=== PATIENT | female | born 1965 | race Caucasian/White ===

== ENCOUNTER → 2021-10-19 14:26 | Outpatient (CLI) | payer OTHER, SELFPAY ==
[2021-10-19 14:56] LABS: COVID19 -Nasal RAPID Negative (Negative)
== END ==
PROVIDERS: PCP Family Medicine; Visit Provider Specialist
DX: Z01.812 Encounter for preprocedural laboratory examination (principal); Z20.822 Contact with and (suspected) exposure to COVID-19
CPT/HCPCS: 87635

== ENCOUNTER 2021-10-20 09:13 | Day surgery (SDC) | payer OTHER, SELFPAY ==
[2021-10-18 10:56] VITALS: BMI 27.8
--- NOTE | 2021-10-20 | PATH_ITS ---
[facility] Accession Number: [id number] . 01 Material submitted: . endometrium - ENDOMETRIAL BIOPSY . 02 Diagnosis: Endometrium, Biopsy: Focal features worrisome for atypical hyperplasia in a background of endometrial polyp. Negative for malignancy. MRV 10/24/2021 1245 Local . 02 Comment: As part of routine compliance quality performance analyst, Dr. Perea has reviewed this case and agrees with the interpretation above. . 02 Electronically signed: . Filiberto Laura MD, PhD, Pathologist NPI- [id number] . 01 Gross description: . ENDOMETRIAL BIOPSY: Received in formalin are minute fragments of mucoid and hemorrhagic material measuring 2.6 x 2.5 x 0.2 cm in aggregate. Submitted in toto in 1 cassette. /CPE 10/21/2021 0928 Local . 02 Pathologist provided ICD-10: N95.0 . 02 CPT . 850862 Specimen Comment: A courtesy copy of this report has been sent to [phone] Performed at: 01 [facility] [address] [facility], [place], [place] [id number] MD Hector Duggan MD Phone: [phone] Performed at: 02 [facility] [address] [place], [place] [id number] MD Mone Perea MD Phone: [phone]
[2021-10-20 10:13] VITALS: BP 140/80; PULSE 59; RESP 16; TEMP 36.2; O2SAT 100; BMI 28.0
[2021-10-20] MEDS: LACTATED RINGERS 1,000 ML 100 ML IV (10:39)
--- NOTE | 2021-10-20 10:45 | PM.PREOP ---
Pre-operative Note COVID-19 COVID-19 status: Negative Result date/Date tested (Pos, Neg/Pending): 10/19/21 Criteria for continued procedure: Expected advancement of disease process Interval Note History & Physical reviewed/Exam performed by Physician: Yes Changes to H&P: No
--- NOTE | 2021-10-20 11:27 | SUR.OPER ---
Lithotomy on padded OR bed, head on pillow, arms secured on padded arm boards at <90 degrees abduction. Legs secured in padded yellow fins stirrups.
[2021-10-20 11:48] VITALS: BP 117/66; PULSE 81; RESP 13; TEMP 36.8; O2SAT 95
[2021-10-20 11:53] VITALS: BP 118/77; PULSE 75; RESP 11; O2SAT 96
--- NOTE | 2021-10-20 12:01 | PM.OP.1 ---
Operative Date/Time/Diagnoses Date of procedure: 10/20/21 Time of procedure: 12:02 Pre-op diagnosis: Postmenopausal bleeding and thickened endometrium on ultrasound Post-op diagnosis: same Procedure & Clinicians Procedure: Hysteroscopy with resection of endometrial polyps and D&C Same procedure as scheduled: Yes Indications: Postmenopausal bleeding with thickened endometrium on ultrasound Surgeon: Liane Rivera Click Yes if Unassisted: Yes Anesthesia Type: General Operative Notes Findings: Multiple polyps, heart-shaped endometrial cavity, submucous fibroid. Closure Type: not applicable Specimen(s): other (Endometrial biopsy) Estimated Blood Loss (mL): 5 Blood products transfused: none Procedure in detail: The patient was brought to the operating room where she underwent general anesthesia. She was placed in low stirrups She was prepped and draped in usual sterile fashion with pulsatile stockings in place and functional, warming in place, no antibiotics indicated. A check system was reviewed with the staff in the room prior to beginning the case. Her bladder was drained with in and out catheter. A single-tooth tenaculum was placed on the anterior lip of the cervix and the uterus dilated to #8 Hegar dilator. The hysteroscope was placed into the uterus with a sorbitol solution running and under constant suction. The resecting loop set at 80 W of cutting was used to resect the small submucosal fibroid and polyps down to the level of the endometrium. A endometrial curettage was performed. The fibroid, polyps, and the endometrial curettage was sent to pathology. The patient went to recovery room in good condition counts of instruments and sponges were correct. Estimated blood loss less than 5 mL. The sorbitol solution I=O approximately 3000 mL. Complications: none Post-operative Condition: stable Disposition: same day surgery Plan for aftercare: Home when awake and stable
[2021-10-20 12:25] VITALS: BP 118/71; PULSE 70; RESP 16; TEMP 36.4; O2SAT 98
== END 2021-10-20 12:30 | disposition home or self-care (01) ==
PROVIDERS: PCP Family Medicine; Referring Provider Specialist; Visit Provider Specialist
PROC: 0UDB8ZZ Extraction of Endometrium, Via Natural or Artificial Opening Endoscopic (ICD-10-PCS; CPT 58558; principal; 2021-10-20 11:15)
DX: N95.0 Postmenopausal bleeding (principal); D25.0 Submucous leiomyoma of uterus; N84.0 Polyp of corpus uteri
CPT/HCPCS: 58558; J1100; J1885; J2250; J2704; J3010

== ENCOUNTER → 2021-12-20 15:46 | Outpatient (CLI) | payer OTHER, SELFPAY ==
[2021-12-20 16:41] LABS: COVID19 -Nasal RAPID Negative (Negative)
== END ==
PROVIDERS: PCP Family Medicine; Visit Provider Specialist
DX: Z01.812 Encounter for preprocedural laboratory examination (principal); Z20.822 Contact with and (suspected) exposure to COVID-19
CPT/HCPCS: 87635

== ENCOUNTER 2021-12-21 12:01 | Day surgery (SDC) | payer OTHER, SELFPAY ==
[2021-12-19 12:51] VITALS: BMI 28.1
[2021-12-21] VITALS (13 sets, daily range): BP systolic 110–141; BP diastolic 65–88; PULSE 62–88; RESP 12–18; TEMP 36.2–36.7; O2SAT 95–100; BMI 28.1
--- NOTE | 2021-12-21 | PATH_ITS ---
[facility] Accession Number: [id number] . 01 Material submitted: . uterus - UTERUS, CERVIX, BILATERAL FALLOPIAN TUBES, BILATERAL OVARIES . 01 Diagnosis: Uterus, Cervix, Bilateral Fallopian Tubes, Bilateral Ovaries, Total Laparoscopic Hysterectomy with Bilateral Salpingo-oophorectomy (Weight 191 grams, Fragmented Uterus Specimen): Cervix with no significant histomorphologic abnormality. Endocervix with no significant histomorphologic abnormality. Endometrium with minute foci of atypical glandular hyperplasia; no cytologic atypia or invasive tumor identified. Please see comment. Myometrium with an adenomyoma and with multiple intramural leiomyomas (up to 43 mm in greatest dimension) with patchy calcification; negative for atypia or malignancy. Right fallopian tube with multiple benign paratubal cysts (up to 6 mm in greatest dimension); negative for atypia or malignancy. Left fallopian tube with no significant histomorphologic abnormality. Right and left ovaries with no significant histomorphologic abnormality. [facility] 12/26/2021 1423 Local . 01 Comment: All grossly visible endometrium is submitted for histologic evaluation. . 01 Electronically signed: . Leni Ponce MD, Pathologist NPI- [id number] . 01 Gross description: . Received in formalin and labeled with the patient's name and uterus, cervix, bilateral fallopian tubes, bilateral ovaries and consists of 191 gram severely distorted, fragmented uterus (13.1 x 8.5 x 5.5 cm in aggregate) with detached cervix (2.7 x 2.7 cm). The serosa is malagon, smooth, and significantly distorted by multiple firm subserosal nodules. The ectocervix is pink-malagon, smooth and unremarkable. The ectocervical margin is inked black (orientation cannot be determined). The os is slit-like and patent, and measures 0.7 cm in greatest dimension. The endocervical canal (3.2 cm in length) has a malagon-pink, herringbone mucosa. The endometrial cavity is unable to be definitively identified, and the possible endometrium is malagon-brown, and the average thickness cannot be determined. Multiple pale malagon, whorled, well-circumscribed leiomyomata, measuring up to 4.3 cm in greatest dimension, are identified, both intramural and subserosal, without hemorrhage or necrosis, however, focal areas of hard tissue consistent with calcification are identified within two nodules. . The right fallopian tube measures 4.7 cm in length and up to 0.9 cm in greatest diameter. The serosa is violaceous with small cystic structures identified proximally, measuring up to 0.6 cm in greatest dimension. The left fallopian tube is avulsed proximally from the body of the uterus and measures 6.5 cm in length and 1.0 cm in greatest diameter with a violaceous unremarkable serosa. . The right malagon, cerebriform ovary measures 2.4 x 1.8 x 0.9 cm with a normal physiologic cut surface. The left malagon, cerebriform ovary measures 2.4 x 1.2 x 0.6 cm with a normal physiologic cut surface. . Education Spec sections are submitted as follows: . A1: Education Spec cervix. A2: Education Spec opposite cervix. A3-A5: Possible endometrium. A6-A7: Calcified nodules following decalcification. A8-A9: Education Spec nodules. A10: Left fallopian tube. A11: Right ovary. A12: Right fallopian tube. A13: Left ovary. ([id number]) /[facility] 12/26/20[address] [facility] . 01 Pathologist provided ICD-10: N95.0, N85.02, D25.9 . 01 CPT . 990958 Specimen Comment: A courtesy copy of this report has been sent to [phone] Performed at: 01 [facility] [address] [place] [address], [place], [place] [id number] MD Hector Duggan MD Phone: [phone]
[2021-12-21] MEDS: ACETAMINOPHEN 325 MG TABLET 975 MG PO (12:23)
--- NOTE | 2021-12-21 13:08 | PM.PREOP ---
Pre-operative Note COVID-19 COVID-19 status: Negative Result date/Date tested (Pos, Neg/Pending): 12/20/21 Criteria for continued procedure: Expected advancement of disease process Interval Note History & Physical reviewed/Exam performed by Physician: Yes Changes to H&P: No
[2021-12-21] MEDS: LACTATED RINGERS 1,000 ML 100 ML IV ×3 (13:18→18:18)
[2021-12-21] MEDS: CEFAZOLIN 2 GM/20 ML SYRINGE IV (14:16)
--- NOTE | 2021-12-21 14:42 | SUR.OPER ---
Lithotomy on padded OR bed. [place] Pad Positioner under torso. Head on pillow, arms padded and tucked at sides. Legs secured in padded yellow fins stirrups.
[2021-12-21] MEDS: BUPIVACAINE 0.5% W/ EPI (PF) 30 ML VIAL INJ (15:02)
[2021-12-21] MEDS: ROPIVACAINE 0.2% PF 2 MG/ML 10ML AMP 20 ML INJ (15:29)
--- NOTE | 2021-12-21 15:55 | P.OP_ITS ---
Operative Date/Time/Diagnoses Date of procedure: 12/21/21 Time of procedure: 15:55 Pre-op diagnosis: Atypical hyperplasia on hysteroscopy biopsy Post-op diagnosis: same Procedure & Clinicians Procedure: Laparoscopic total hysterectomy with bilateral salpingo oophorectomy Same procedure as scheduled: Yes Indications: Patient with atypical endometrial hyperplasia of a polyp on hysteroscopy D&C done for postmenopausal bleeding Surgeon: Liane Rivera Sales Promotion Director: Ruperto Osei Click Yes if Unassisted: No Anesthesia Type: General Operative Notes Findings: Enlarged fibroid uterus with normal appearing fallopian tubes and ovaries. Normal appearing liver edge. Normal bowel surface. Closure Type: primary Specimen(s): other (Uterus tubes and ovaries) Estimated Blood Loss (mL): 50 Blood products transfused: none Procedure in detail: Patient is brought to the operating room where she underwent general anesthesia and placed in low yellowfin stirrups. She was prepped and draped in the usual sterile fashion. A check list was reviewed with the staff in the room prior to beginning of the case. Patient had pulsatile stockings in place and functional. 2 g of Ancef were in prior to beginning of the case.. A Starks catheter was placed. A single-tooth tenaculum was placed on the anterior lip of the cervix and the cervix dilated to a #6 Hegar dilator. The VCare uterine manipulator was placed through the cervix into the uterus with the balloon inflated with 3 mL of air. The area of the umbilical incision and the 5 mm right and left lower quadrant incisions were injected with Marcaine. An incision was made with sc alpel. The verries needle was placed into the abdomen and confirmed in the appropriate place with withdrawal on a syringe and then free flow of fluid down through the needle. The abdomen was insufflated with CO2. The needle was removed and a 5 mm trocar placed without difficulty. There did not appear to be any damage is placement of the trocar. The right and left lower quadrant incisions were made with the scalpel and the trochars placed without damage to internal structures. The PK forceps were used to cauterize the infundibulopelvic ligaments. Sequential bites were taken along the broad ligament followed by the round ligaments on both sides. Sequential bites were taken down the broad ligaments. The uterine arteries were cauterized. An incision was made above the level bladder pushing the bladder away from the cervix. The hook Bovie tip cautery was used to cauterize the vaginal cuff along the VCare cuff. The uterus was freed. Next the procedure was switched to vaginal. Using a weighted speculum and a retractor the cervix was grasped with a single-tooth tenaculum. The uterus was hand morselized allowing the uterus tubes and ovaries to be removed vaginally. The vaginal cuff was closed from anterior to posterior with interrupted 0 Vicryl sutures. Adequate hemostasis was noted. The abdomen was reinsufflated and adequate hemostasis was noted. 20 cc of ropivacaine were placed over the incision. trochars were removed and the CO2 allowed escape from the abdomen. Skin was closed with 4-0 Monocryl suture at the 3 sites. The patient went to recovery room in good condition. Counts of instruments and sponges were correct. Dr. Osei was present throughout the case to assist with holding the camera, retracting, cauterizing and cutting the structures on the left side of the patient, as well as assisting with morselization of the uterus and repairing the vaginal cuff. Complications: none Post-operative Condition: stable Disposition: same day surgery Plan for aftercare: Home when awake and stable in able to urinate, pain controlled and ambulate
[2021-12-21] MEDS: OXYCODONE IR 5 MG TABLET PO (16:24)
[2021-12-21] MEDS: HYDROCODONE/ACET 5/325 TABLET 1 TAB PO (21:30)
[2021-12-21] MEDS: KETOROLAC 30 MG/ML VIAL IV (23:01)
[2021-12-22 02:00] VITALS: BP 128/75; PULSE 71; RESP 14; TEMP 36.5; O2SAT 96
[2021-12-22] MEDS: KETOROLAC 30 MG/ML VIAL IV ×2 (05:03→10:36)
[2021-12-22 05:56] VITALS: BP 124/68; PULSE 68; RESP 14; TEMP 36.6; O2SAT 97
[2021-12-22] MEDS: THYROID, PORK 30 MG TABLET 97.5 MG PO (06:10)
[2021-12-22 07:00] VITALS: O2SAT 96
--- NOTE | 2021-12-22 07:23 | P.DS_ITS ---
History of Present Illness History of Present Illness Date Patient Seen: 12/22/21 Time Patient Seen: 07:23 Chief complaint: TOTAL LAP HYSTERECOTMY W/PALMIRA SALPINGO-OOPHOR *OPB* Narrative: Postoperative day 1 total laparoscopic hysterectomy with bilateral salpingo oop horectomy. 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 Patient is doing well. She is tolerating regular diet. She has minimal pain. She is ambulatory. She is urinating well. She is passing gas. Status at Discharge Cognitive/behavioral status at discharge: oriented Functional status at discharge: independent ambulation Overall status at discharge: patient is progressing back to baseline Time Spent with Patient Time spent: Less than 30 minutes Exam Vital Signs (past 8 hours): - 12/22/21 02:00 12/22/21 05:56 Temperature 97.7 F 97.8 F Pulse Rate 71 68 Respiratory Rate 14 14 Blood Pressure 128/75 124/68 Pulse Oximetry 96 97 Oxygen Delivery Method Room Air Oxygen Flow Rate 0 Narrative Exam Narrative: Abdomen is soft, nontender. Incisions are clean, dry, intact. No significant vaginal bleeding. Extremities without edema and nontender. [facility] Medical History (Updated 12/21/21 @ 14:56 by Luana Farmer MD) Acne Adrenal insufficiency Allergies Anorexia nervosa (~1977) Anxiety Asthma (~2005) BPPV (benign paroxysmal positional vertigo) (~2009) Carpal tunnel syndrome Chicken pox (~1965) Depression Dry eyes Eczema Fibroids Foot pain Fracture Groin cyst Hand arthritis Herpes (~1999) Hypothyroidism Knee pain Low testosterone Measles (~1967) Mononucleosis (~1986) Mumps (~1966) Osteoarthritis (~2014) Psoriasis Shoulder pain (~2019) Skin problem Wears glasses Surgical History (Updated 12/21/21 @ 16:32 by Liane Rivera MD) Anesthesia History of cystoscopy History of hand surgery (~2015) History of hysteroscopy (10/20/21) History of tonsillectomy (~1969) [place] teeth removed Family History (Updated 07/31/21 @ 20:44 by Norma Maxwell) Father Diabetes mellitus History of heart disease Hypertension Hyperlipidemia Mental health problem Mother Adenoma of left lung Paget's disease of vulva Brother Diabetes mellitus Mental health problem Hypertension Brother Mental health problem Alcoholism Grandfather History of heart disease Stroke Arthritis Grandmother Alcoholism Cancer Grandfather History of heart disease Alcoholism Social History household members: significant other Smoking Status: Never smoker alcohol intake: current Discharge Assessment & Plan Assessment and Plan Assessment: Status post total laparoscopic hysterectomy with bilateral salpingo oophorectomies for atypical endometrial hyperplasia on hysteroscopy biopsies doing well. Plan of Treatment: Patient is discharged home to be followed up in 1 week. Precautions reviewed with the patient. Discharge Plan Discharge Plan Patient Disposition: Home Discharge orders & Medications Discharge Orders: Discharge (Order); Ordered 12/22/21 Ordered By: Liane Rivera Prescriptions: Continued hydrocodone-acetaminophen 5-325 mg tablet 1 tab PO Q4-6H PRN (Reason: pain) Qty: 20 0RF Rx Instructions: post op Topical testosterone cream 1 applic topical DAILY 0RF Rx Instructions: pt has at home Compounded estradiol cream 1 applic topical DAILY 0RF Rx Instructions: pt takes daiy, and will wait to take at home hydrocortisone 20 mg tablet 30 mg PO DAILY 0RF Rx Instructions: continue to take two weeks after surgery thyroid (pork) [[place] Thyroid] 90 mg tablet 97.5 mg PO DAILY 0RF citalopram 20 mg tablet 30 mg PO DAILY 0RF loratadine 10 mg tablet 10 mg PO DAILY PRN (Reason: Allergic Symptoms) 0RF calcitriol 0.5 mcg capsule 1 mcg PO DAILY 0RF melatonin 3 mg DAILY 0RF Rx Instructions: take at 8pm Follow up/Referrals: Liane Rivera MD [Physician] - As previously scheduled (12/29/2021 at 2:30 p.m.) Angela Avilez MD [Primary Care Provider] - Diet/Activity/Treatments Diet: Regular Activity: Nothing in vagina for 6 weeks. No lifting over 20 lb for 6 weeks Skin/Wound/Dressing Care Report to your healthcare provider any signs of infection, such as:: chills, fever and increased pain Dressing: Leave Band-Aids on for 24 hours then remove. Leave Steri-Strips on for 1 week can get wet just pat dry Visit Report/Discharge Packet Instructions: DI for Hysterectomy, DI for Laparoscopy Stand Alone Forms: Surgery Discharge Discharge Data Primary Care Provider: Angela Avilez Attending Provider: Liane Rivera
[2021-12-22 07:36] VITALS: BP 117/70; PULSE 71; RESP 18; TEMP 36.7; O2SAT 96
[2021-12-22] MEDS: HYDROCODONE/ACET 5/325 TABLET 1 TAB PO (08:08)
[2021-12-22] MEDS: CITALOPRAM 10 MG TABLET 30 MG PO (08:09)
[2021-12-22] MEDS: HYDROCORTISONE 10 MG TABLET 20 MG PO (08:13)
--- NOTE | 2021-12-22 09:34 | CM.DANOTE ---
DCP: Case received, EMR reviewed and met with patient. Introduced self and role. Was able to obtain information regarding patient's baseline activity status prior to surgery. DCP assessment completed with information currently available. Patient is 56 year old female who admitted yesterday morning to the care of the AUTO CLAIM REPRESENTATIVE team. PCP: Dr. Avilez Payer: confirmed: [facility]. Patient came to the hospital via private vehicle secondary to having a planned surgical procedure. She had a laparoscopic total hysterectomy. Patient has history of atypical hyperplasia. Met with patient in her room. She is pleasant, alert and oriented. Patient resides in [facility] with her life partner, Eric Marques. She has good support for when she goes home. Patient is independent at her baseline. P: Patient is discharging home today with no needs. Mya Capellan RN/Head Of Academic Technology Discharge Planning/Care Management CM Discharge Assessment Start: 12/22/21 09:32 Freq: Status: Active Protocol: Document 12/22/21 09:32 (Rec: 12/22/21 09:34 [id number]) Discharge Planning Assessment Assigned Remote Sensing Surveyor Mya Capellan RN/Head Of Academic Technology Advance Directives? No History Provided By Patient,Medical Record Prior Living Arrangements House Household Members significant other Type of transporation used prior to Drives own vehicle admit Independent with ADL's Yes Is patient alert and oriented? Yes Caregiver for Another No Barriers to Discharge No Discharge Plan Home Transportation Arrangement Partner Referrals Initiated None needed Whiteboard Updated in Patient Room with Yes name and ext. # of Remote Sensing Surveyor Review Status In Process Next Review Type Continued Stay Review Pre-Anesthesia Assessment Start: 12/19/21 12:51 Freq: Status: Complete Protocol: Document 12/19/21 12:51 [facility] (Rec: 12/19/21 12:55 [facility] [id number]) Pre-Anesthesia Assessment Patient Information Reviewed Via Chart Review H&P Completed Within 30 Days Yes Comment COVID screen @ 12/20/21 Seen Specialist in Last 12 Months Yes Specialist Seen Outside Physical Damage Appraiser Primary Language [place] Instrument Tester Required No Height 5 ft 8 in Weight 185 lb Body Mass Index (BMI) 28.1 Visual Assist Glasses Barriers to Learning None Hx Anesthesia Reactions No Hx Family Anesthesia Reaction No Hx Malignant Hyperthermia No Hx Blood Transfusion Reaction No Anesthesia Review Requested No Affirmative Action Officer No alcohol intake current alcohol intake frequency a few times a month Smoking Status Never smoker Substance Use Type does not use Pain Present Pain Reported Musculoskeletal Symptoms Joint Pain History of Falling (Recent or History of No ) Patient is completely paralyzed or No completely immobile Mental Status Oriented to own ability Is patient on oxygen? No Does patient have KUHN/SOB No Hx Sleep Apnea No CPAP/BIPAP use not prescribed Currently Taking a Beta Cally No Hx Chest Pain No Hx SOB No Hx Syncope or Dizziness No Anti-Coagulant Therapy No Has a Barn Worker No Cardiac Testing No Hx Pacemaker/ICD No Pacemaker Rep Required? No Genitourinary Symptoms Non-Menses Vaginal Bleeding Urinary Catheter Present No Hx Urinary Self Catheterization No Diabetes No Patient No Lactating No Presence of External or Internal Medical No Devices Received a COVID vaccine? Yes Lives With significant other Patient Discharge Plan Description Return Home Advance Directives? No
[2021-12-22 09:35] VITALS: O2SAT 96
[2021-12-22] MEDS: ONDANSETRON 4 MG ODT SL (11:05)
--- NOTE | 2021-12-22 12:20 | PC.NURSE ---
Pt is A&Ox3, pleasant VSS, afebrile on RA. Lap site incisions covered with bandaids x3 to abdomen c/d/i/. MD at bedside this a.m. clearing patient for discharge home this morning. She denies any vaginal drainage. She is voiding without difficulty and ambulating with a steady gait. She verbalizes understanding of discharge plan, medications, activity, site care, s/sx of infection and follow up appointment. She is able to tolerate medications and some breakfast reporting very mild nausea. MD Rivera notified for anti emetic per request to go home with. Pt given x1 dose of ODT zofran 4mg prior to discharge and prescription called in to her pharmacy. She is escorted via w/ch to private vehicle with spouse with all of her belongings this morning at approximately 1130.
== END 2021-12-22 11:30 | disposition home or self-care (01) ==
LOC: OR 12:03 → AC 12:03
PROVIDERS: PCP Family Medicine; Referring Provider Specialist; Visit Provider Specialist
PROC: 0UT94ZZ Resection of Uterus, Percutaneous Endoscopic Approach (ICD-10-PCS; CPT 58571; principal; 2021-12-21 13:30)
DX: N85.02 Endometrial intraepithelial neoplasia [EIN] (principal); N95.0 Postmenopausal bleeding; N90.7 Vulvar cyst; D26.1 Other benign neoplasm of corpus uteri; D25.1 Intramural leiomyoma of uterus; N83.8 Other noninflammatory disorders of ovary, fallopian tube and broad ligament
CPT/HCPCS: 58571; 94760; 94762; J0330; J0690; J1100; J1885; J2250; J2405; J2704; J2795; J3010